=== PATIENT | female | born 1990 | race Caucasian/White ===

== ENCOUNTER 2021-05-22 11:59 | Emergency (ER) | payer OTHER ==
[~2021-05-22] VITALS: Ht 157.5 cm; Wt 57.0 kg
--- NOTE | 2021-05-22 12:26 | PHYS DOC ---
General Adult EDM: Chief Complaint: VAGINAL BLEEDING HPI: HPI: Patient is a 30-year-old female who presents to the emergency department for vaginal bleeding and . Patient reports that she noticed spotting this morning but it has resolved prior to ER arrival at 10:00. She is not having any current vaginal bleeding. She reports that on she did have fever with some nausea and vomiting. She states that her OB is [facility]. She is G2, P1. Last menstrual period was April 01, she is approximately 7 weeks . Patient reports that her blood type is a positive. Patient denies any vaginal discharge, concern for STDs, abdominal pain or cramping, vaginal bleeding, urinary symptoms. (MADELINE PURCELL APRN) Review of Systems: Review of Systems: Constitutional: negative unless reported in HPI Eyes: negative unless reported in HPI HENT: negative unless reported in HPI Respiratory: negative unless reported in HPI Cardiovascular: negative unless reported in HPI GI: negative unless reported in HPI : negative unless reported in HPI Musculoskeletal: negative unless reported in HPI Integument: negative unless reported in HPI Neurologic: negative unless reported in HPI Endocrine: negative unless reported in HPI Lymphatic: negative unless reported in HPI Psychiatric: negative unless reported in HPI (MADELINE PURCELL APRN) Current Medications: Current Meds: Current Medications Medications (Trade) Dose Ordered Sig/Isiah Start Time Stop Time Status Last Admin Dose Admin Sodium Chloride 1,000 ml @ 1,000 mls/hr 1X ONCE 05/22/21 12:30 05/22/21 13:29 UNV (MADELINE PURCELL APRN) Physical Exam: PE: Constitutional: Well developed, well nourished, no acute distress, non-toxic appearance. [] HENT: Normocephalic, atraumatic, bilateral external ears normal, oropharynx moist, no oral exudates, nose normal. [] Eyes: PERRL, EOMI, conjunctiva normal, no discharge. [] Neck: Normal range of motion, no tenderness, supple, no stridor. [] Cardiovascular:Heart rate regular rhythm, no murmur [] Lungs & Thorax: Bilateral breath sounds clear to auscultation [] Abdomen: Bowel sounds normal, soft, no tenderness, no masses, no abdominal rigidity or guarding, negative Martines sign, no pulsatile masses. [] Skin: Warm, dry, no erythema, no rash. [] Back: Normal range of motion Extremities: No tenderness, no cyanosis, no clubbing, ROM intact, no edema. [] Neurologic: Alert and oriented X 3, normal motor function, normal sensory function, no focal deficits noted. [] Psychologic: Affect normal, judgement normal, mood normal. [] (MADELINE PURCELL APRN) Current Patient Data: Labs: Laboratory Tests Test 05/22/21 12:15 05/22/21 12:28 05/22/21 12:35 Urine Collection Type Clean catch Urine Color Yellow Urine Clarity Clear Urine pH 6.0 Urine Specific [place] 1.010 Urine Protein Neg Urine Glucose (UA) Neg mg/dL Urine Ketones (Stick) Neg mg/dL Urine Blood Trace Urine Nitrite Neg Urine Bilirubin Neg Urine Urobilinogen Dipstick 0.2 mg/dL Urine Leukocyte Esterase Neg Urine RBC 0 /HPF Urine WBC 0 /HPF Urine Squamous Epithelial Cells Mod /LPF Urine Bacteria 0 /HPF Bedside Urine HCG, Qualitative hcg positive White Blood Count 9.4 x10^3/uL Red Blood Count 4.01 x10^6/uL Hemoglobin 12.0 g/dL Hematocrit 35.2 % Mean Corpuscular Volume 88 fL Mean Corpuscular Hemoglobin 30 pg Mean Corpuscular Hemoglobin Concent 34 g/dL Red Cell Distribution Width 14.2 % Platelet Count 209 x10^3/uL Neutrophils (%) (Auto) 69 % Lymphocytes (%) (Auto) 20 % Monocytes (%) (Auto) 9 % Eosinophils (%) (Auto) 1 % Basophils (%) (Auto) 0 % Neutrophils # (Auto) 6.5 x10^3uL Lymphocytes # (Auto) 1.9 x10^3/uL Monocytes # (Auto) 0.9 x10^3/uL Eosinophils # (Auto) 0.1 x10^3/uL Basophils # (Auto) 0.0 x10^3/uL Sodium Level 137 mmol/L Potassium Level 3.9 mmol/L Chloride Level 101 mmol/L Carbon Dioxide Level 27 mmol/L Anion Gap 9 Blood Urea Nitrogen 8 mg/dL Creatinine 0.7 mg/dL Estimated GFR (Cockcroft-Gault) 98.9 BUN/Creatinine Ratio 11 Glucose Level 77 mg/dL Calcium Level 8.7 mg/dL Total Bilirubin 0.4 mg/dL Aspartate Amino Transf (AST/SGOT) 17 U/L Alanine Aminotransferase (ALT/SGPT) 11 U/L Alkaline Phosphatase 37 U/L Total Protein 7.5 g/dL Albumin 3.6 g/dL Albumin/Globulin Ratio 0.9 Current Medications Medications (Trade) Dose Ordered Sig/Isiah Route PRN Reason Start Time Stop Time Status Last Admin Dose Admin Sodium Chloride 1,000 ml @ 1,000 mls/hr 1X ONCE IV 05/22/21 12:30 05/22/21 12:26 DC (MADELINE PURCELL APRN) EKG: EKG: [] (MADELINE PURCELL APRN) Radiology/Procedures: Radiology/Procedures: []PROCEDURE: OB <14 WKS W/TV Obstetrical ultrasound first trimester with transvaginal scanning 05/22/2021. Reason for exam: Vaginal bleeding. Initial scanning was done transabdominally through the bladder. This shows a retroverted uterus containing a fluid-filled structure consistent with gestational sac. Yolk sac and embryo are not clearly seen. There is a small amount of posterior free fluid. The ovaries are not identified. Transvaginal scanning confirms an intrauterine gestation with a living embryo showing heart rate of 118 bpm. Estimated age by crown-rump length measurement is 6 weeks 2 days, giving ARTHUR of 01/13/2022. Sac is normal in shape. There is a yolk sac. No adjacent hemorrhage is seen. The ovaries appear normal and there is no apparent adnexal mass. IMPRESSION: Living intrauterine embryo. No identified cause for bleeding. Electronically signed by: Nayana Sepulveda Jr., MD (05/22/2021 1:38 PM) [facility] DICTATED AND SIGNED BY: NAYANA SEPULVEDA Jr, MD DATE: 05/22/21 1336 CC: DANNI VEGA; MADELINE PURCELL APRN ~MTH0 0 (MADELINE PURCELL APRN) Heart Score: C/O Chest Pain: N/A Risk Factors: Risk Factors: DM, Current or recent (<one month) smoker, HTN, HLP, family history of CAD, obesity. Risk Scores: Score 0 - 3: 2.5% MACE over next 6 weeks - Discharge Home Score 4 - 6: 20.3% MACE over next 6 weeks - Admit for Clinical Observation Score 7 - 10: 72.7% MACE over next 6 weeks - Early Invasive Strategies (MADELINE PURCELL APRN) Course & Med Decision Making: Course & Med Decision Making Pertinent Labs and Imaging studies reviewed. (See chart for details) [] Patient presents to the emergency department for vaginal spotting that started this morning but stopped 2 hours prior to ER arrival. She is not having any other complaints. Patient denies any concern for STI and denies any vaginal discharge. She is approximately 7 weeks with her last menstrual period April 01. Work-up in the ER consisted of blood work, urinalysis and ultrasound. Blood work was unremarkable, urinalysis showed no infection. Patient is Rh+. Ultrasound shows a living gestation measuring 6 weeks and 2 days with a heart rate of 118 and normal-appearing ovaries with no other acute findings. Unknown what the cause of her spotting was but as patient has not experienced any spotting currently, advised to follow-up with her OB. I discussed with patient all findings and diagnostic testing as well as the need to follow-up with PCP for further evaluation and treatment or return to the ER if any new or worsening symptoms. Strict return precautions were also discussed at length. Patient voiced understanding and agreement with the plan. Patient is hemodynamically stable at the time of disposition. (MADELINE PURCELL APRN) Course & Med Decision Making Did not see or evaluate patient. Did not discuss patient with NAIL TECHNICIAN TEACHER. Agree with NAIL TECHNICIAN TEACHER's work-up and disposition per note. (GUANAKITO MILLER MD) Dragon Disclaimer: Dragon Disclaimer: This electronic medical record was generated, in whole or in part, using a voice recognition dictation system. (MADELINE PURCELL APRN) Departure Departure: Impression: Primary Impression: Vaginal bleeding before 22 weeks gestation Disposition: HOME / SELF CARE / HOMELESS Condition: GOOD Referrals: DANNI VEGA (PCP) Patient Instructions: Vaginal Bleeding During , First Trimester Additional Instructions: You were seen in the emergency department for spotting that occurred this morning but has resolved. Your blood work and urine were unremarkable and did not show any signs of infection. You are Rh+. Ultrasound was performed and a living intrauterine gestation was seen measuring at 6 weeks and 2 days. There are several things that can cause spotting in including dehydration, infection, intercourse, and implantation bleeding. I would follow-up with your DYE PADDER OPERATOR on Sunday. Please return to the emergency department if you develop severe vaginal bleeding where you are saturating more than 1 pad an hour, intractable nausea or vomiting, high fevers refractory to treatment, abdominal pain, urinary symptoms or any new or worsening concerns. MADELINE PURCELL APRN May 22, 2021 12:26 GUANAKITO MILLER MD May 22, 2021 15:04
[2021-05-22] MEDS ORDERED: IV NORMAL SALINE 1,000ML 1,000 ML IV ONE (12:30)
[2021-05-22 12:58] LABS: BASO % 0 % (0-3); EOS # 0.1 x10^3/uL (0.0-0.7); EOS % 1 % (0-3); HEMATOCRIT 35.2 % (36.0-47.0); LYMPH # 1.9 x10^3/uL (1.0-4.8); LYMPH % 20 % (24-48); MEAN CORPUSCULAR HEMOGLOBIN 30 pg (25-35); MEAN CORPUSCULAR HGB CONC 34 g/dL (31-37); MEAN CORPUSCULAR VOLUME 88 fL (79-100); MONO # 0.9 x10^3/uL (0.0-1.1); MONO % 9 % (0-9); NEUT # 6.5 x10^3uL (1.8-7.7); NEUT % 69 % (31-73); PLATELET COUNT 209 x10^3/uL (140-400); RED BLOOD COUNT 4.01 x10^6/uL (3.50-5.40); RED CELL DISTRIBUTION WIDTH 14.2 % (11.5-14.5); WHITE BLOOD COUNT 9.4 x10^3/uL (4.0-11.0)
[2021-05-22 13:28] LABS: BILIRUBIN,URINE NEG (NEG); CLARITY,URINE CLEAR; COLOR,URINE YELLOW; GLUCOSE,URINE NEG (NEG)
[2021-05-22 13:29] LABS: BACTERIA,URINE 0 /HPF (0-FEW); NITRITE,URINE NEG (NEG); RBC,URINE 0 /HPF (0-2); SQUAMOUS EPITHELIAL CELL,UR MOD /LPF; UROBILINOGEN,URINE 0.2 mg/dL (0.2 mg/dL); WBC,URINE 0 /HPF (0-4)
[2021-05-22 13:35] LABS: CALCIUM 8.7 mg/dL (8.5-10.1); CREATININE 0.7 mg/dL (0.6-1.0); GFR 98.9; POTASSIUM 3.9 mmol/L (3.5-5.1)
[2021-05-22 13:40] LABS: ALBUMIN 3.6 g/dL (3.4-5.0); ALBUMIN/GLOBULIN RATIO 0.9 (1.0-1.7); TOTAL BILIRUBIN 0.4 mg/dL (0.2-1.0); TOTAL PROTEIN 7.5 g/dL (6.4-8.2)
--- NOTE | 2021-05-22 13:41 | RAD ---
Obstetrical ultrasound first trimester with transvaginal scanning 05/22/2021. Reason for exam: Vaginal bleeding. Initial scanning was done transabdominally through the bladder. This shows a retroverted uterus conta ining a fluid-filled structure consistent with gestational sac. Yolk sac and embryo are not clearly s een. There is a small amount of posterior free fluid. The ovaries are not identified. Transvaginal scanning confirms an intrauterine gestation with a living embryo showing heart rate of 1 18 bpm. Estimated age by crown-rump length measurement is 6 weeks 2 days, giving ARTHUR of 01/13/2022. Sac is normal in shape. There is a yolk sac. No adjacent hemorrhage is seen. The ovaries appear normal a nd there is no apparent adnexal mass. IMPRESSION: Living intrauterine embryo. No identified cause for bleeding. Electronically signed by: Maurice Sepulveda Jr., MD (05/22/2021 1:38 PM) [facility]
[2021-05-22 14:11] VITALS: BP 112/70
== END 2021-05-22 14:12 | disposition home or self-care (01) ==
LOC: ER 11:59
DX: O46.91 Antepartum hemorrhage, unspecified, first trimester (principal); Z3A.01 Less than 8 weeks gestation of pregnancy
CPT/HCPCS: 36415; 76801; 76817; 80053; 81001; 81025; 84702; 85025; 86901; 99284